=== PATIENT | female | born 1985 | race Caucasian/White ===

== ENCOUNTER 2016-08-15 14:08 | Inpatient (IN) | payer BC ==
[~2016-08-15] VITALS: Ht 165.1 cm; Wt 106.4 kg
[~2016-08-15 14:08] MED LIST: MOTRIN 800800 MG/TAB PO; PERCOCET 325 MG1 TA2 PO; PRENATAL1 TA7 PO; TRANDATE 200MG200 MG PO
[2016-08-21] VITALS (38 sets, daily range): BP systolic 15–189; BP diastolic 63–100; PULSE 69–107; TEMP 97.9–98.7
[2016-08-21 08:27] LABS: BASO % 0.3 % (0.0-2.0); EOS # 0.1 (0.0-0.7); EOS % 0.8 % (0-4.0); GRAN # 7.2 (1.4-6.5); GRAN % 79.7 % (42.2-75.2); LYMPH % 10.9 % (20.0-51.0); MEAN CELL VOLUME 84 fl (80.0-100.0); MEAN CORPUSCULAR HGB CONC 31 g/dl (33.0-37.0); MEAN PLATELET VOLUME 12.4 fl (7.4-10.4); MONO # 0.7 (0.1-0.6); MONO % 7.2 % (1.7-9.3); PLATELET COUNT 165 K/mm3 (130-400); REDCELL DISTRIBUTION WIDTH-CV 13.7 % (11.5-14.5); WHITE BLOOD COUNT 9.1 K/mm3 (4.8-10.8)
[2016-08-21 08:28] LABS: HEMATOCRIT 31.1 % (37.0-47.0); HEMOGLOBIN 9.7 g/dl (12.5-16.0); MEAN CORPUSCULAR HEMOGLOBIN 26 pg (27.0-31.0)
[2016-08-22 00:20] VITALS: BP 136/76; PULSE 79; TEMP 97.8
[2016-08-22 04:50] VITALS: BP 130/77; PULSE 89; TEMP 98
[2016-08-22 06:38] LABS: BASO % 0.2 % (0.0-2.0); EOS # 0.1 (0.0-0.7); EOS % 0.8 % (0-4.0); GRAN # 6.6 (1.4-6.5); GRAN % 74.8 % (42.2-75.2); LYMPH # 1.1 (1.2-3.4); LYMPH % 12.8 % (20.0-51.0); MEAN CELL VOLUME 83 fl (80.0-100.0); MEAN CORPUSCULAR HGB CONC 32 g/dl (33.0-37.0); MEAN PLATELET VOLUME 12.4 fl (7.4-10.4); MONO # 0.9 (0.1-0.6); MONO % 10.4 % (1.7-9.3); PLATELET COUNT 140 K/mm3 (130-400); RED BLOOD COUNT 3.28 M/mm3 (4.10-5.30); REDCELL DISTRIBUTION WIDTH-CV 14.1 % (11.5-14.5); WHITE BLOOD COUNT 8.8 K/mm3 (4.8-10.8)
[2016-08-22 06:58] LABS: HEMATOCRIT 27.2 % (37.0-47.0); HEMOGLOBIN 8.6 g/dl (12.5-16.0); MEAN CORPUSCULAR HEMOGLOBIN 26 pg (27.0-31.0)
[2016-08-22 07:09] LABS: ALBUMIN 2.8 gm/dL (3.5-5.0); BILIRUBIN,TOTAL 0.5 mg/dL (0.0-1.0); CREATININE, serum 0.56 mg/dL (0.52-1.25); POTASSIUM 3.5 mmol/L (3.4-5.0); TOTAL PROTEIN 5.1 gm/dL (6.4-8.2)
[2016-08-22] MEDS ORDERED: IBU800 M1 PO (08:52)
[2016-08-22] MEDS ORDERED: TRANDATE 200MG200 MG PO (08:52)
[2016-08-22 15:36] VITALS: BP 132/78; PULSE 86; TEMP 98.1
[2016-08-22 19:20] VITALS: BP 134/89; PULSE 90; PULSE 97; TEMP 97.5
[2016-08-23 09:00] VITALS: BP 130/76; PULSE 86; TEMP 97.6
== END 2016-08-23 11:00 | disposition home or self-care (01) | DRG 775 ==
LOC: LDR 08-21 07:00 → OB 08-21 22:14 → EDSTATUS 09-06 10:14 → LDR 09-06 10:16 → LDRO 09-06 14:04
PROVIDERS: Student in an Organized Health Care Education/Training Program
PROC: 10E0XZZ Delivery of Products of Conception, External Approach (ICD-10-PCS; principal; 2016-08-21)
PROC: 0TQD0ZZ Repair Urethra, Open Approach (ICD-10-PCS; 2016-08-21)
PROC: 3E033VJ Introduction of Other Hormone into Peripheral Vein, Percutaneous Approach (ICD-10-PCS; 2016-08-21)
DX: O13.3 Gestational [pregnancy-induced] hypertension without significant proteinuria, third trimester (principal); O71.5 Other obstetric injury to pelvic organs; O99.824 Streptococcus B carrier state complicating childbirth; O99.02 Anemia complicating childbirth; D64.9 Anemia, unspecified; O75.89 Other specified complications of labor and delivery; Z3A.37 37 weeks gestation of pregnancy; Z37.0 Single live birth
CPT/HCPCS: J0360; J1940; J2540; J2590; J2795; J7120

== ENCOUNTER → 2016-09-11 | Outpatient (CLI) | payer BC ==
[~2016-09-11] MED LIST changes: +IBU800 M1 PO
== END ==
LOC: COL.RAD 09:45
DX: K80.20 Calculus of gallbladder without cholecystitis without obstruction (principal); K76.9 Liver disease, unspecified

== ENCOUNTER 2018-05-05 07:15 | Inpatient (IN) | payer BC ==
[2018-05-05] VITALS (27 sets, daily range): BP systolic 106–186; BP diastolic 60–99; PULSE 59–100; TEMP 98.1–98.6
[~2018-05-05] VITALS: Ht 165.1 cm; Wt 102.3 kg
[~2018-05-05 07:15] MED LIST changes: +PROTONIX20 MG PO
--- NOTE | 2018-05-05 07:25 | NUR ---
0725-G3L1 38[address] Huang ambulatory to unit for scheduled induction of labor for PIH. Patient reports contractions this am at 0600, has not timed them just noticed some. Also reports clear fluid gush at 0700 and some further leaking of fluid. Assisted into gown and placed on EFM, reactive FHR, contractions every 6 min. BP 141/90. IV to right hand. LR infusing. Unable to collect blood from IV start, notified lab to come draw. 0755-Amnitest + SVE /-3, clear fluid gush, Dr. Bar notified. Assessment complete, Consents reviewed and signed. Updated on plan of care. 0855-Dr. Bar on unit, SVE by MD /3. Pitocin started per protocol and MD order at 2mu/min. BP 186/83 while MD in room. Orders to continue to monitor. 0935-Patient requests epidural. SHWETA Lucero notified. Pitocin off per patient request. 0945-Ptaient sitting up on bedside. Difficulty tracing EFM due to maternal positioning. RN frequently repositioning. 0950-SHWETA Lucero to room. 1001-Single shot administered by SHWETA Lucero patient denies symptoms of reaction or side effects. 1007-Repositioned WL, updated on safety and plan of care. Patient requests to leave pitocin off at this time. 1020-Updated Dr. Bar on patients desire to leave pit off. MD okay to check cervix and leave off if making cervicle change. See physician notification. 1030-Bartlett to DD, Clear yellow urine return. SVE /-2 1100-Patient complains of headhace declines Tylenol, reviewed BP with MD, see physician notification. Pitocin at 2mu/min at this time. 1130-SVE 100/0 Patient feeling pushy, notified MD. See physician notification. 1143-Dr. Bar to room. SVE by MD, Practice push with MD. Patient moves vertex well with contraction. 1150-RN pushes through contractions with patient. 1153-Dr. Bar called back to room for delivery. 1154-Patient begins pushing with patient through contractions. 1156-Spontaneous delivery of viable female infant, nuchal x1 reduced by MD. Infant to mothers abdomen. Cord clamped x by MD and cut by Father of baby. Care of infant assumed by LAMBERTO Lopez Apgars . 1200-Spontaneous delivery of intact placenta. Fundal massage firm. Lochia WNL. Pitocin bolus per protocol and MD order. EBL 200ml. Perineum Intact. Sarah care provided. Ice to perineum. Updated on plan of care and safety.
[2018-05-05 07:56] LABS: COLLECTION METHOD CLEAN CATCH
[2018-05-05 07:59] LABS: MEAN CELL VOLUME 84 fl (80.0-100.0); MEAN CORPUSCULAR HGB CONC 31 g/dl (33.0-37.0); MEAN PLATELET VOLUME 11.6 fl (7.4-10.4); PLATELET COUNT 170 K/mm3 (130-400); RED BLOOD COUNT 3.61 M/mm3 (4.10-5.30); REDCELL DISTRIBUTION WIDTH-CV 14.2 % (11.5-14.5)
[2018-05-05 08:01] LABS: HEMATOCRIT 30.3 % (37.0-47.0); HEMOGLOBIN 9.5 g/dl (12.5-16.0); MEAN CORPUSCULAR HEMOGLOBIN 26 pg (27.0-31.0)
[2018-05-05 08:04] LABS: MUCOUS Present /lpf; PH 5 (5-8); SQUAMOUS EPITHELIAL 0-2 /hpf; URINE APPEARANCE Clear; URINE BACTERIA None Seen /hpf; URINE BILIRUBIN Negative (NEGATIVE); URINE BLOOD Negative (NEGATIVE); URINE COLOR Yellow; URINE GLUCOSE Negative (NEGATIVE); URINE KETONE Negative (NEGATIVE); URINE LEUKOCYTE ESTERASE Negative (NEGATIVE); URINE NITRATE Negative (NEGATIVE); URINE PROTEIN(semi-quant) 1+ (NEGATIVE); URINE WBC 0-2 /hpf
[2018-05-05] MEDS ORDERED: NATURAL IRON65 MG (08:04)
[2018-05-05 08:11] LABS: LYMPHOCYTE 13 % (20.0-51.0); NEUTROPHILS 80 % (42.0-75.2); PLATELET ESTIMATE NORMAL (NORMAL)
[2018-05-05 08:39] LABS: BILIRUBIN,TOTAL 0.2 mg/dL (0.0-1.0); CALCIUM 8.5 mg/dL (8.4-10.2); CREATININE, serum 0.58 mg/dL (0.52-1.25); TOTAL PROTEIN 5.7 gm/dL (6.4-8.2)
--- NOTE | 2018-05-05 13:04 | NUR ---
1304-Updated MD on patients recovery BP remaining elevated. Reviewed BP. Orders to start labetalol 200mg now and BID.
--- NOTE | 2018-05-05 15:55 | NUR ---
Patient unable to hold right leg above bed. Easily transfers to wheelchair and to bathroom. Voids 300ml clear yellow urine. Pericare provided. Wheeled to room 219, assisted into bed from wheelchair and updated on plan of care and safety. Baby to right breast. Reported off to LAMBERTO Selby.
--- NOTE | 2018-05-06 03:30 | NUR ---
0330 PT STATES TOOK HER OWN MOTRIN 400MG.
[2018-05-06 07:45] VITALS: BP 135/79; PULSE 73; TEMP 98.3
[2018-05-06] MEDS ORDERED: IBU800 M1 PO (09:15)
[2018-05-06] MEDS ORDERED: NORMODYNE200 MG PO (09:16)
--- NOTE | 2018-05-06 10:00 | NUR ---
Initial visit; Parents thanked Resident Buyer for offering congratulations and God's blessings for the of their daughter. Resident Buyer thanked them for choosing [facility].
== END 2018-05-06 15:45 | disposition home or self-care (01) | DRG 807 ==
LOC: LDR 07:15 → OB 15:05 → LDR 16:26 → OB 05-06 15:45 → LDR 05-11 07:01
PROVIDERS: ADMIT Student in an Organized Health Care Education/Training Program
PROC: 10E0XZZ Delivery of Products of Conception, External Approach (ICD-10-PCS; principal; 2018-05-05)
DX: O13.4 Gestational [pregnancy-induced] hypertension without significant proteinuria, complicating childbirth (principal); Z37.0 Single live birth; Z3A.38 38 weeks gestation of pregnancy; O69.81X0 Labor and delivery complicated by cord around neck, without compression, not applicable or unspecified; O42.02 Full-term premature rupture of membranes, onset of labor within 24 hours of rupture; O99.02 Anemia complicating childbirth
CPT/HCPCS: J2590; J7120